=== PATIENT | male | born 1940 | race Two or more races ===

== ENCOUNTER 2022-05-25 20:37 | Observation (INO) | payer OTHER ==
[2022-05-25] MEDS ORDERED: LIDOCAINE 5% TOPICAL PATCH TP ONE (23:00)
[2022-05-25] MEDS ORDERED: ACETAMINOPHEN 325 MG TABLET (FP) PO ONE (23:00)
[2022-05-26] MEDS ORDERED: IBUPROFEN 400 MG TABLET (FP) PO ONE ×2 (00:42→00:48)
[2022-05-26] MEDS ORDERED: LIDOCAINE 5% TOPICAL PATCH ONE (00:48)
[2022-05-26] MEDS ORDERED: ACETAMINOPHEN 325 MG TABLET (FP) ONE (00:48)
[2022-05-26 06:37] LABS: BASO % 0.7 % (0-2.0); EOS % 3.7 % (0-4.5); HEMATOCRIT 38.9 % (35.4-49); HEMOGLOBIN 13.3 GM/dL (11.7-16.9); LYMPH % 16.2 % (8-40); MCH 29.3 pg (25.7-33.7); MCHC 34.2 g/dl (32.0-35.9); MEAN CELL VOLUME 85.6 fl (80-96); MEAN PLT VOLUME 8.7 fl (7.5-11.1); MONO % 7.4 % (3.8-10.2); PLATELET COUNT 188 10^3/uL (134-434); RBC 4.54 M/mm3 (4.00-5.60); RDW 14.3 % (11.9-15.9); WHITE BLOOD COUNT 7.3 K/mm3 (4.0-10.0)
[2022-05-26 06:42] LABS: CALCIUM 9.2 mg/dL (8.5-10.1)
[2022-05-26 06:44] LABS: ALBUMIN 4.1 g/dl (3.4-5.0); BLOOD UREA NITROGEN 15.2 mg/dL (7-18)
[2022-05-26 06:48] LABS: BILIRUBIN,TOTAL 0.4 mg/dL (0.2-1); TOT PROT 8.1 g/dl (6.4-8.2)
[2022-05-26 15:21] VITALS: BMI 26.9
[2022-05-26] MEDS: ATORVASTATIN CA 40 MG TABLET (FP) PO SCH (21:59)
[2022-05-27] MEDS: ACETAMINOPHEN 325 MG TABLET (FP) PO PRN (01:48)
[2022-05-27] MEDS: LOSARTAN POTASSIUM 50 MG TABLET PO SCH (09:16)
[2022-05-27] MEDS: CLOPIDOGREL BISULFATE 75 MG TABLET (FP) PO SCH (09:17)
[2022-05-27] MEDS: HYDROCHLOROTHIAZIDE 25 MG TABLET (FP) PO SCH (09:17)
[2022-05-27] MEDS ORDERED: LOSARTAN POTASSIUM PO SCH (10:00)
[2022-05-27] MEDS: ATORVASTATIN CA 40 MG TABLET (FP) PO SCH (21:49)
[2022-05-28] MEDS: ACETAMINOPHEN 325 MG TABLET (FP) PO PRN (07:10)
[2022-05-28] MEDS: LOSARTAN POTASSIUM 50 MG TABLET PO SCH (09:07)
[2022-05-28] MEDS: CLOPIDOGREL BISULFATE 75 MG TABLET (FP) PO SCH (09:07)
[2022-05-28] MEDS: HYDROCHLOROTHIAZIDE 25 MG TABLET (FP) PO SCH (09:07)
[2022-05-28 10:05] LABS: BASO % 0.6 % (0-2.0); EOS % 4.4 % (0-4.5); HEMATOCRIT 37.7 % (35.4-49); HEMOGLOBIN 12.9 GM/dL (11.7-16.9); LYMPH % 15.8 % (8-40); MCH 29.1 pg (25.7-33.7); MCHC 34.3 g/dl (32.0-35.9); MEAN CELL VOLUME 84.9 fl (80-96); MEAN PLT VOLUME 8.9 fl (7.5-11.1); NEUT % 71.2 % (42.8-82.8); PLATELET COUNT 199 10^3/uL (134-434); RBC 4.45 M/mm3 (4.00-5.60); WHITE BLOOD COUNT 7.6 K/mm3 (4.0-10.0)
[2022-05-28 10:40] VITALS: BP 142/68; PULSE 71; RESP 16; TEMP 98.1
== END 2022-05-28 14:36 | disposition home or self-care (01) ==
LOC: JER 20:37 → INTOOBSV 05-26 05:04 → JERBED 05-26 05:04 → J5S 05-26 11:34
PROVIDERS: ADMIT Internal Medicine; ATTEND Internal Medicine
DX: M25.062 Hemarthrosis, left knee (principal); M25.562 Pain in left knee; Z99.89 Dependence on other enabling machines and devices; E11.9 Type 2 diabetes mellitus without complications; I10 Essential (primary) hypertension; E78.5 Hyperlipidemia, unspecified; I25.2 Old myocardial infarction; Z95.5 Presence of coronary angioplasty implant and graft
CPT/HCPCS: 0241U-QW; 36415; 73562-TC-LT-FY; 73700-TC-RT; 80053; 85025; 93005; 93010; 97116-GP; 97161-GP; 99285-25; G0378